=== PATIENT | female | born 1955 | race Caucasian/White ===

== ENCOUNTER 2020-01-10 12:44 | Emergency (ER) | payer MEDICARE ==
[~2020-01-10] VITALS: Ht 165.1 cm; Wt 90.7 kg
[2020-01-10] MEDS ORDERED: KETOROLAC TROMETHAMINE 30 MG/ML VIAL IV ONE (13:02)
[2020-01-10] MEDS ORDERED: ONDANSETRON HCL INJ 2MG/ML 2ML 2 MG/ML VIAL IV ONE (13:02)
[2020-01-10] MEDS ORDERED: SODIUM CHLORIDE 0.9% 1000ML 1,000 ML IV STA (13:02)
[2020-01-10] MEDS ORDERED: CEFTRIAXONE SOD 1 GM/NS 50 ML 50 ML IV ONE (13:15)
[2020-01-10 14:08] LABS: CLARITY,URINE CLEAR (CLEAR); COLOR,URINE YELLOW (YELLOW); LEUKOCYTE ESTERASE ,URINE NEGATIVE (NEGATIVE)
[2020-01-10 14:09] LABS: BILIRUBIN,URINE NEGATIVE (NEGATIVE); KETONES,URINE NEGATIVE (NEGATIVE); NITRITE,URINE NEGATIVE (NEGATIVE); PROTEIN,URINE DIPSTICK NEGATIVE (NEGATIVE); URINE UROBILINOGEN 0.2 mg/dL (0.2 - 1)
[2020-01-10 14:21] LABS: BACTERIA,URINE RARE /HPF; EPITHELIAL CELLS,URINE FEW /LPF; RBC,URINE 0-5 /HPF (0-5); WBC,URINE (MAN) 0-5 /HPF (0-5)
--- NOTE | 2020-01-10 14:39 | Diagnostic Imaging Report ---
EXAM: CT Abdomen and Pelvis WITHOUT contrast INDICATION: Stone protocol. UTI, history of kidney stones, right flank pain, dysuria. COMPARISON: None. TECHNIQUE: Abdomen and pelvis were scanned utilizing a multidetector helical scanner from the lung base to the pubic symphysis without administration of IV contrast. Absence of intravenous contrast decreases sensitivity for detection of focal lesions and vascular pathology. Coronal and sagittal reformations were obtained. Stone protocol is performed. IV CONTRAST: None. ORAL CONTRAST: None. RADIATION DOSE: Total DLP: 757.9 mGy*cm Estimated effective dose: (DLP x 0.015 x size factor) mSv COMPLICATIONS: None FINDINGS: LINES and TUBES: None. LOWER THORAX: Small cysts within the lingula and right lower lobe. Mild patchy right basilar atelectasis. A partially hyperdense nodule within the right lower lobe measuring 4 mm on series 3, image 7, likely partially calcified granuloma. Small hiatal hernia. HEPATOBILIARY: No focal hepatic lesions. No biliary ductal dilation. GALLBLADDER: Decompressed gallbladder. No radio-opaque stones or sludge. No wall thickening. SPLEEN: No splenomegaly. PANCREAS: No focal masses or ductal dilatation. ADRENALS: No adrenal nodules KIDNEYS/URETERS: No hydronephrosis. No cystic or solid mass lesions. No stones. GI TRACT: No abnormal distention, wall thickening, or evidence of bowel obstruction. Appendix is normal. PELVIC ORGANS/BLADDER: Minimal diffuse bladder wall thickening. LYMPH NODES: No lymphadenopathy. VESSELS: Unremarkable. PERITONEUM / RETROPERITONEUM: No free air or fluid. BONES: Unremarkable. SOFT TISSUES: Small fat-containing umbilical hernia. IMPRESSION: No evidence of nephrolithiasis. Minimal diffuse bladder wall thickening may reflect partial decompression versus cystitis in the appropriate clinical setting. Signed by: Dr. Antonio Montenegro MD on 01/10/2020 2:36 PM
--- NOTE | 2020-01-10 15:54 | Emergency Department Note ---
History of Present Illnes History of Present Illness Chief Complaint: General Medicine Complaints History of Present Illness This is a 64 year old female PT STATES SHE HAS A FRIEND WHO HAS COVID AND SHE WANTS A TEST. PT DENIED ANY SYMPTOMS. PT STATED SHE JUST WANTED TEST. WHEN EXPLAINED PT HAS TO SEE ER DR, SHE THEN STATED SHE HAD A UTI A WK AGO AND WANTS IT RECHECKED. PT IN NO DISTRESS AT TRIAGE. SHE C/O FLANK PAIN AND SAYS SHE HAS H/O KIDNEY STONES, STILL HAS DYSURIA Historian: Patient Arrival Mode: Car Workforce Planning Analyst Required: No Onset (how long ago): day(s) (3) Location: RIGHT FLANK Quality: PAIN Radiation: Reports non-radiation Severity: moderate Onset quality: gradual Timing of current episode: constant Progression: waxing and waning Chronicity: new Context: Reports recent illness Relieving factors: none Exacerbating factors: none Associated symptoms: Reports denies other symptoms Treatments prior to arrival: none Past Medical/Family History Physician Review I have reviewed the patient's past medical and family history. Any updates have been documented here. Past Medical History Recent Fever: No Clinical Suspicion of Infectio: No New/Unexplained Change in Ment: No Past Medical History: Hypertension, CAD Past Surgical History: None Social History Smoking Cessation: Never Smoker Counseling Performed: No Alcohol Use: None Any Illegal Drug Use: No TB Exposure/Symptoms: No Physically hurt or threatened: No Family History Family history of heart diseas: No Review of Systems Review of Systems Constitutional: Reports no symptoms EENTM: Reports no symptoms Cardiovascular: Reports no symptoms Respiratory: Reports no symptoms Gastrointestinal: Reports no symptoms Genitourinary: Reports as per HPI Musculoskeletal: Reports no symptoms Integumentary: Reports no symptoms Neurological: Reports no symptoms Psychological: Reports no symptoms Endocrine: Reports no symptoms Hematological/Lymphatic: Reports no symptoms Physical Exam Related Data Allergies: Coded Allergies: codeine (Verified Allergy, Unknown, 01/10/20) Triage Vital Signs Vital Signs Date Time Temp Pulse Resp B/P (MAP) Pulse Ox O2 Delivery O2 Flow Rate FiO2 01/10/20 12:46 98.9 74 16 180/90 98 Vital signs reviewed: Yes Physical Exam CONSTITUTIONAL Constitutional: Present well-developed, Present well-nourished HENT HENT: Present normocephalic, Present atraumatic, Present oropharynx clear/moist, Present nose normal HENT L/R: Present left ext ear normal, Present right ext ear normal EYES Eyes: Reports PERRL, Reports conjunctivae normal NECK Neck: Present ROM normal PULMONARY Pulmonary: Present effort normal, Present breath sounds normal CARDIOVASCULAR Cardiovascular: Present regular rhythm, Present heart sounds normal, Present capillary refill normal, Present normal rate GASTROINTESTINAL Abdominal: Present right CVA tenderness (VERY MINIMAL) GENITOURINARY Genitourinary: Present exam deferred SKIN Skin: Present warm, Present dry MUSCULOSKELETAL Musculoskeletal: Present ROM normal NEUROLOGICAL Neurological: Present alert, Present oriented x 3, Present no gross motor or sensory deficits PSYCHOLOGICAL Psychological: Present mood/affect normal, Present judgement normal Results Laboratory Laboratory Laboratory Tests Test 01/10/20 12:50 Urine Color Yellow (YELLOW) Urine Clarity Clear (CLEAR) Urine pH 8.5 (5 - 7) Urine Specific Gage 1.015 (1.010-1.025) Urine Protein Negative (NEGATIVE) Urine Glucose (UA) Negative (NEGATIVE) Urine Ketones Negative (NEGATIVE) Urine Blood Negative (NEGATIVE) Urine Nitrite Negative (NEGATIVE) Urine Bilirubin Negative (NEGATIVE) Urine Urobilinogen 0.2 mg/dL (0.2 - 1) Urine Leukocyte Esterase Negative (NEGATIVE) Urine RBC 0-5 /HPF (0-5) Urine WBC 0-5 /HPF (0-5) Urine Epithelial Cells Few /LPF (NONE) Urine Bacteria Rare /HPF (NONE) Lab results reviewed: Yes Imaging Imaging results reviewed: Yes Impressions Procedure: [id number] CT/CT ABDOMEN/PELVIS WO Exam Date: 01/10/20 Exam Time: 1358 REPORT STATUS: Signed EXAM: CT Abdomen and Pelvis WITHOUT contrast INDICATION: Stone protocol. UTI, history of kidney stones, right flank pain, dysuria. COMPARISON: None. TECHNIQUE: Abdomen and pelvis were scanned utilizing a multidetector helical scanner from the lung base to the pubic symphysis without administration of IV contrast. Absence of intravenous contrast decreases sensitivity for detection of focal lesions and vascular pathology. Coronal and sagittal reformations were obtained. Stone protocol is performed. IV CONTRAST: None. ORAL CONTRAST: None. RADIATION DOSE: Total DLP: 757.9 mGy*cm Estimated effective dose: (DLP x 0.015 x size factor) mSv COMPLICATIONS: None FINDINGS: LINES and TUBES: None. LOWER THORAX: Small cysts within the lingula and right lower lobe. Mild patchy right basilar atelectasis. A partially hyperdense nodule within the right lower lobe measuring 4 mm on series 3, image 7, likely partially calcified granuloma. Small hiatal hernia. HEPATOBILIARY: No focal hepatic lesions. No biliary ductal dilation. GALLBLADDER: Decompressed gallbladder. No radio-opaque stones or sludge. No wall thickening. SPLEEN: No splenomegaly. PANCREAS: No focal masses or ductal dilatation. ADRENALS: No adrenal nodules KIDNEYS/URETERS: No hydronephrosis. No cystic or solid mass lesions. No stones. GI TRACT: No abnormal distention, wall thickening, or evidence of bowel obstruction. Appendix is normal. PELVIC ORGANS/BLADDER: Minimal diffuse bladder wall thickening. LYMPH NODES: No lymphadenopathy. VESSELS: Unremarkable. PERITONEUM / RETROPERITONEUM: No free air or fluid. BONES: Unremarkable. SOFT TISSUES: Small fat-containing umbilical hernia. IMPRESSION: No evidence of nephrolithiasis. Minimal diffuse bladder wall thickening may reflect partial decompression versus cystitis in the appropriate clinical setting. Signed by: Dr. Antonio Montenegro MD on 01/10/2020 2:36 PM Assessment & Plan Medical Decision Making MDM UA, CT ABD/PELVIS - R/O UTI, URETEROLITHIASIS Reassessment Reassessment DC HOME, CEFTIN Assessment & Plan Final Impression: (1) Cystitis Depart Disposition: HOME, SELF-CARE Last Vital Signs Date Time Temp Pulse Resp B/P (MAP) Pulse Ox O2 Delivery O2 Flow Rate FiO2 01/10/20 12:46 98.9 74 16 180/90 98 Medications in the ED Ondansetron HCl 4 mg ONCE ONCE IV ; Start 01/10/20 at 13:02; Stop 01/10/20 at 14:47; Status DC Ketorolac Tromethamine 30 mg ONCE ONCE IV ; Start 01/10/20 at 13:02; Stop 01/10/20 at 14:47; Status DC Sodium Chloride 1,000 ml @ 0 mls/hr Q0M STAT IV ; Start 01/10/20 at 13:02; Stop 01/10/20 at 14:47; Status DC Ceftriaxone Sodium 50 ml @ 100 mls/hr ONCE ONCE IV ; Start 01/10/20 at 13:15; Stop 01/10/20 at 14:47; Status DC JULIANA CHAVEZ MD Jan 10, 2020 15:54
== END 2020-01-10 15:57 | disposition home or self-care (01) ==
LOC: ER 12:48
DX: M54.5 Low back pain (principal); R30.0 Dysuria; N30.90 Cystitis, unspecified without hematuria; I10 Essential (primary) hypertension; I25.10 Atherosclerotic heart disease of native coronary artery without angina pectoris
CPT/HCPCS: 74176; 81001; 87086; 99283

== ENCOUNTER → 2024-09-17 | Day surgery (SDC) | payer MEDICARE, OTHER ==
[2024-09-10 10:09] LABS: BASOPHILS % 0.8 % (0.0-1.0); EOSINOPHILS # (AUTO) 0.5 (0.0-0.4); EOSINOPHILS % 9.7 % (0.0-6.0); HEMATOCRIT 40.5 % (34.2-44.1); HEMOGLOBIN 13.2 g/dL (12.0-16.0); LYMPHOCYTES # (AUTO) 1.7 (1.0-3.2); LYMPHOCYTES % 32.8 % (18.0-39.1); MEAN CORPUSCULAR HEMOGLOBIN 30.1 pg (28-32); MEAN CORPUSCULAR HGB CONC 32.6 g/dL (31-35); MEAN CORPUSCULAR VOLUME 92.3 fL (81-99); MONOCYTES # (AUTO) 0.6 (0.2-0.8); MONOCYTES % 11.5 % (4.4-11.3); NEUTROPHILS # (AUTO) 2.3 (2.1-6.9); PLATELET COUNT 211 x10e3/uL (140-360); RED BLOOD COUNT 4.39 x10e6/uL (3.6-5.1); WHITE BLOOD COUNT 5.06 x10e3/uL (4.8-10.8)
[~2024-09-17] MED LIST: ACETAMINOPHEN 1000 MG/100 ML 100 ML IV ONE; ATENOLOL50 MG PO; DEXAMETHASONE SOD PHOS INJ 4 MG/ML SDV ONE; FENTANYL CITRATE/PF 100MCG/2 ML INJ ONE; HYDROCODON-ACE1 EA11 PO; KETOROLAC TROMETHAMINE 30 MG/ML VIAL ONE; LIDOCAINE HCL 2% LOCAL INJ 5 ML SDV VIAL INJ ONE; LIPITOR10 MG PO; MIDAZOLAM HCL 2 MG/2 ML VIAL ONE; MULTI-VITAMIN1 EACH PO; OMEPRAZOLE40 MG PO; PROPOFOL IV EMULSION 10 MG/ML 20 ML VIAL ONE; SEVOFLURANE INHAL SOLN 250 ML PEN BTL ONE
[2024-09-17] MEDS: LACTATED RINGER'S 1,000 ML ONE (06:41)
[2024-09-17 08:51] VITALS: BP 126/63; PULSE 61; RESP 17; O2SAT 97
== END | disposition home or self-care (01) ==
LOC: OR 05:58
PROVIDERS: ATTEND Plastic Surgery
DX: M15.1 Heberden's nodes (with arthropathy) (principal); M67.441 Ganglion, right hand; G47.33 Obstructive sleep apnea (adult) (pediatric); R00.1 Bradycardia, unspecified; I10 Essential (primary) hypertension; R73.03 Prediabetes; E66.9 Obesity, unspecified; K21.9 Gastro-esophageal reflux disease without esophagitis; Z91.048 Other nonmedicinal substance allergy status; Z88.6 Allergy status to analgesic agent; Z01.810 Encounter for preprocedural cardiovascular examination; Z01.812 Encounter for preprocedural laboratory examination; Z79.899 Other long term (current) drug therapy
CPT/HCPCS: 26236; 36415; 85025; 93005; J0131; J0690; J1100; J1885; J2003; J2250; J2704; J3010; J7121